=== PATIENT | female | born 1960 | race Two or more races ===

== ENCOUNTER 2023-03-10 07:52 | Emergency (ER) | payer MEDICAID, SELFPAY ==
[2023-03-10 08:07] VITALS: BP 146/82; PULSE 59; RESP 16; TEMP 35.3; O2SAT 97; BMI 38.3
--- NOTE | 2023-03-10 08:20 | CRLHL7_ITS ---
For Patients: As a result of the Century Cures Act, medical imaging exams and procedure reports are released immediately into your electronic medical record. You may view this report before your referring provider. If you have questions, please contact your health care provider. INDICATION: FALL. LEFT FRONTAL BUMP TECHNIQUE: Head CT without contrast. COMPARISON: None. FINDINGS: CSF spaces: Within normal limits for age. Brain parenchyma and extra-axial spaces: There are mild nonspecific low attenuation white matter changes consistent with chronic microvascular disease. No sign of intracranial hemorrhage, or midline shift. Skull base and calvarium: The visualized paranasal sinuses and mastoid air cells demonstrate no acute or significant findings. The visualized orbits are grossly unremarkable. No skull fractures. Small left frontal scalp hematoma. IMPRESSION: Small left frontal scalp hematoma. No evidence of underlying skull fracture or intracranial hemorrhage. Mild nonspecific low attenuation white matter changes consistent with chronic microvascular disease. Please note that all CT scans at this facility use dose modulation, iterative reconstruction, and/or weight-based dosing when appropriate to reduce radiation dose to as low as reasonably achievable. Dictated by Jesus Mcdaniel MD @ 03/10/2023 9:31:56 AM (Electronically Signed)
--- NOTE | 2023-03-10 08:23 | ED_ITS ---
HPI - General Adult General Chief complaint: Head Injury/Pain Stated complaint: Fall Time Seen by Provider: 03/10/23 07:57 Source: patient and family Mode of arrival: ambulatory Limitations: no limitations History of Present Illness HPI narrative: 63-year-old female, with a history of diabetes and on a daily baby aspirin, presenting today after a fall. States that she rolled out of her bed while she was sleeping, believe she hit her head on the nightstand and then on the ground. Complains of a headache. Denies any nausea or vomiting. This occurred approximately hour and half ago. Denies any neurologic deficits. Related Data Home Medications Medication Instructions Recorded Confirmed acetaminophen 325 mg tablet 650 mg PO Q4H PRN 03/10/23 03/10/23 albuterol sulfate 90 mcg/actuation 1 inh inhalation Q4H PRN 03/10/23 03/10/23 breath activated powder inhaler amlodipine 10 mg tablet 10 mg PO DAILY 03/10/23 03/10/23 aspirin 81 mg chewable tablet 81 mg PO DAILY 03/10/23 03/10/23 brimonidine 0.2 % eye drops 1 drp ophthalmic (eye-right) BID 03/10/23 03/10/23 dapagliflozin propanediol 10 mg 10 mg PO DAILY 03/10/23 03/10/23 tablet (Farxiga) gabapentin 300 mg capsule 300 mg PO TID 03/10/23 03/10/23 hydroxyzine pamoate 50 mg capsule 50 mg PO TID PRN 03/10/23 03/10/23 insulin glargine 100 unit/mL 44 unit subcut BID 03/10/23 03/10/23 subcutaneous solution insulin lispro 100 unit/mL 1 sliding scale dose subcut 03/10/23 03/10/23 subcutaneous pen (Humalog KwikPen .w/meals (U-100) Insulin) lisinopril 40 mg tablet 40 mg PO DAILY 03/10/23 03/10/23 metoprolol succinate 100 mg 100 mg PO DAILY 03/10/23 03/10/23 capsule sprinkle, ext. release 24 hr metoprolol succinate 50 mg capsule 50 mg PO QPM 03/10/23 03/10/23 sprinkle, ext. release 24 hr naproxen 250 mg tablet 250 mg PO BID PRN 03/10/23 03/10/23 omeprazole 20 mg capsule,delayed 20 mg PO DAILY 03/10/23 03/10/23 release spironolactone 25 mg tablet 25 mg PO DAILY 03/10/23 03/10/23 Allergies Allergy/AdvReac Type Severity Reaction Status Date / Time Iodinated Contrast Media Allergy Verified 03/10/23 08:04 Review of Systems Status of ROS: Reports: 10 or more systems reviewed and unremarkable except as noted in History and below [facility] Social History Smoking Status: Never smoker Do you use any of these nicotine containing products: None Second hand tobacco smoke exposure: No How often do you have a drink containing alcohol: monthly or less How many standard drinks containing alcohol do you have on a typical day: 1 or 2 How often do you have six or more drinks on one occasion: Never AUDIT-C Alcohol total score: 1 Non-prescribed substance use: denies use service: No Exam Narrative: Exam Narrative: Well-nourished well-developed patient in no acute distress. Alert and oriented x3. Answers questions appropriately. Mood and affect are appropriate. Thoughts are goal oriented and rational. No tangential or magical thinking noted. Patient speaks in full sentences without needing to catch her breath. Speech is not slurred or pressured. GCS is 15. HEENT: Normocephalic. Pupils are equally round reactive to light. Extraocular muscles are intact. Conjunctivae are moist without any icterus noted. Moist mucous membranes. Posterior pharynx is normal. Neck is soft. She has no tenderness to palpation at the cervical spine. She has good range of motion with flexion, extension, side bending rotation without discomfort. Patient has a large hematoma over the left forehead with overlying very superficial abrasions. She has no crepitus in the area. Cardiovascular: Heart is regular rate and rhythm S1 and S2 are present with a 2/6 systolic murmur. Lungs: Clear to auscultation bilaterally. Abdomen: Soft and nontender nondistended with normal bowel sounds. Extremities: Bilateral lower extremities are without edema. Skin: Well perfused without any obvious rashes. Const: Vital Signs, click to edit/add: Vital Signs - 24 hr 03/10/23 08:07 Temperature 95.6 F L Pulse Rate [Pulse Oximeter] 59 L Respiratory Rate 16 Blood Pressure [Ri ght Forearm] 146/82 H Pulse Oximetry 97 Oxygen Delivery Me thod Room Air Course Course ED Course: Given the size of her hematoma, we did proceed with a head CT. Vital Signs Vital signs: Initial Vital Signs Temperature 95.6 F L 03/10/23 08:07 Temperature Source Temporal Artery Scan 03/10/23 08:07 Pulse Rate 59 L 03/10/23 08:07 Pulse Rhythm Regular 03/10/23 08:07 Respiratory Rate 16 03/10/23 08:07 Blood Pressure 146/82 H 03/10/23 08:07 Blood Pressure Mean 103 03/10/23 08:07 Blood Pressure Position Supine 03/10/23 08:07 Pulse Oximetry 97 03/10/23 08:07 Oxygen Delivery Method Room Air 03/10/23 08:07 Vital Signs Temperature 95.6 F L 03/10/23 08:07 Pulse Rate 59 L 03/10/23 08:07 Respiratory Rate 16 03/10/23 08:07 Blood Pressure 146/82 H 03/10/23 08:07 Pulse Oximetry 97 03/10/23 08:07 Oxygen Delivery Method Room Air 03/10/23 08:07 Temperature 95.6 F L 03/10/23 08:07 Pulse Rate 59 L 03/10/23 08:07 Respiratory Rate 16 03/10/23 08:07 Blood Pressure 146/82 H 03/10/23 08:07 Pulse Oximetry 97 03/10/23 08:07 Oxygen Delivery Method Room Air 03/10/23 08:07 Medical Decision Making Imaging Data CT scan - head: Attestation: I have reviewed the pertinent imaging results. Radiologist's impression: Head CT without contrast. COMPARISON: None. FINDINGS: CSF spaces: Within normal limits for age. Brain parenchyma and extra-axial spaces: There are mild nonspecific low attenuation white matter changes consistent with chronic microvascular disease. No sign of intracranial hemorrhage, or midline shift. Skull base and calvarium: The visualized paranasal sinuses and mastoid air cells demonstrate no acute or significant findings. The visualized orbits are grossly unremarkable. No skull fractures. Small left frontal scalp hematoma. IMPRESSION: Small left frontal scalp hematoma. No evidence of underlying skull fracture or intracranial hemorrhage. Mild nonspecific low attenuation white matter changes consistent with chronic microvascular disease. Discharge Plan Discharge Clinical Impression: Hematoma of frontal scalp, Closed head injury Patient Disposition: Home, Self-Care Condition: Stable Additional Instructions: Okay to use Tylenol as needed for headaches or you can use the Naprosyn you already use at home. You should ice the forehead today 3 or 4 times, ice for 20 minutes at a time. Do not apply ice directly to skin. Return to the ER if you develop confusion, vomiting or weakness in your extremities. Prescriptions: No Action acetaminophen 325 mg tablet 650 mg PO Q4H PRN albuterol sulfate 90 mcg/actuation aerosol powdr breath activated 1 inh inhalation Q4H PRN Rx Instructions: Inhale 1-2 puffs by mouth every 4 hours as needed for wheezing amlodipine 10 mg tablet 10 mg PO DAILY aspirin 81 mg tablet,chewable 81 mg PO DAILY brimonidine 0.2 % drops 1 drp ophthalmic (eye-right) BID Farxiga 10 mg tablet 10 mg PO DAILY gabapentin 300 mg capsule 300 mg PO TID Rx Instructions: Take 1 capsule in the morning, take 1 capsule in the afternoon, take 2 capsules at bedtime. insulin lispro [Humalog KwikPen Insulin] 100 unit/mL insulin pen 1 sliding scale dose subcut .w/meals Rx Instructions: Inject 40 units with breakfast and lunch. Inject 45 units with dinner. hydroxyzine pamoate 50 mg capsule 50 mg PO TID PRN insulin glargine 100 unit/mL solution 44 unit subcut BID Rx Instructions: Inject 44 units subcutaneously every morning and 60 units every evening. lisinopril 40 mg tablet 40 mg PO DAILY metoprolol succinate 100 mg capsule,sprinkle,ER 24hr 100 mg PO DAILY metoprolol succinate 50 mg capsule,sprinkle,ER 24hr 50 mg PO QPM Rx Instructions: Take one tablet by mouth every evening; Take your Metoprolol 100mg in the morning. naproxen 250 mg tablet 250 mg PO BID PRN omeprazole 20 mg capsule,delayed release(DR/EC) 20 mg PO DAILY spironolactone 25 mg tablet 25 mg PO DAILY Stand Alone Forms: [employer] Info Instructions
[2023-03-10 08:30] VITALS: BP 137/54
[2023-03-10 09:00] VITALS: BP 144/86; PULSE 60; O2SAT 96
[2023-03-10 09:30] VITALS: BP 139/75; PULSE 60; O2SAT 97
[2023-03-10 10:00] VITALS: BP 136/57; PULSE 60; RESP 18; O2SAT 96
== END 2023-03-10 10:10 | disposition home or self-care (01) ==
LOC: ED 10:09
PROVIDERS: Emergency Provider Family Medicine
DX: S00.03XA Contusion of scalp, initial encounter (principal); W06.XXXA Fall from bed, initial encounter
CPT/HCPCS: 70450; 99283; 99284

== ENCOUNTER 2024-02-12 17:48 | Emergency (ER) | payer MEDICAID, SELFPAY ==
[2024-02-12 17:51] VITALS: BP 137/83; PULSE 75; RESP 18; TEMP 36.4; O2SAT 98
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
[2024-02-12] MEDS: TETANUS/DIPHTH/PERTUSSIS 0.5 ML SYRINGE IM (18:25)
== END 2024-02-12 18:34 | disposition home or self-care (01) ==
PROVIDERS: Emergency Provider Family Medicine
DX: S80.812A Abrasion, left lower leg, initial encounter (principal); Z23 Encounter for immunization; V86.59XA Driver of other special all-terrain or other off-road motor vehicle injured in nontraffic accident, initial encounter
CPT/HCPCS: 90471; 90715; 99283; 99284